=== PATIENT | male | born 1950 | race Caucasian/White ===

== ENCOUNTER → 2018-06-19 10:26 | Outpatient (CLI) | payer MEDICARE, BC, SELFPAY ==
--- NOTE | 2018-06-19 | DI.MRI.S_ITS ---
PROCEDURE: MR LUMBAR SPINE WO CON INDICATIONS: LUMBAR SPINE PAIN TECHNIQUE: Noncontrast sagittal T1 spin echo and T2 fast echo, sagittal STIR, axial T1 and T2 fast spin echo through the lumbar spine. In cases with scoliosis, additional coronal T2 fast spin echo may be performed. COMPARISON: [facility], MR, L-SPINE WITHOUT CONTRAST, 01/21/2017, 8:29. [facility], CR, XR LUMBAR SPINE WITH OBLIQUES, 06/14/2018, 16:01. FINDINGS: Image quality: Excellent. Alignment and Curvature: 5 lumbar type vertebral bodies are present by plain film. Transitional element at L5. There is mild diffuse leftward curvature of the lumbar spine. There is mild, grade 1 retrolisthesis of T12 on L1, L1 on L2, L2 on L3, and L3 on L4. Mild grade 1 anterolisthesis of L4 on L5. Bone Marrow: Marrow is of normal overall signal. No acute vertebral body compression fractures. There is moderate reactive signal within the endplates adjacent to the the T12-L1, L1-L2, and L2-L3 intervertebral discs. Mild reactive signal within the endplates adjacent to the L3-L4 and L4-L5 intervertebral discs. Spinal Cord: Conus medullaris terminates at the L1-L2 disc space level. Visualized cord demonstrates normal signal and size. Paraspinous Soft Tissues: No paravertebral masses. T12-L1: Severe disc height loss and desiccation. Mild diffuse disc bulge. Mild facet hypertrophy. Moderate lipomatosis. Mild canal stenosis is unchanged. Increased, moderate right and no change in mild left foraminal stenosis. L1-L2: Severe disc height loss and desiccation. Mild diffuse disc bulge/osteophyte with superimposed broad-based right far lateral protrusion/osteophyte. Mild epidural lipomatosis. Mild canal stenosis. Mild right greater than left foraminal stenosis. No change. L2-L3: Moderate disc height loss and desiccation. Moderate diffuse disc bulge/osteophyte. Moderate epidural lipomatosis. Mild facet and ligamentum flavum hypertrophy. Severe canal stenosis. Moderate subarticular foraminal stenosis bilaterally. No change. L3-L4: Moderate disc height loss and desiccation. Moderate diffuse disc bulge with superimposed left far lateral broad-based protrusion/osteophyte. Mild facet and ligamentum flavum hypertrophy. Mild epidural lipomatosis. Mild canal stenosis. Severe subarticular left and mild right foraminal stenosis. Intraforaminal L3 nerve root flattening. No change. L4-L5: Moderate disc height loss and desiccation. Moderate facet hypertrophy bilaterally. Mild canal stenosis. Moderate to severe bilateral foraminal stenosis with intraforaminal L4 nerve root flattening. No change. L5-S1: Bilateral facet hypertrophy. No significant canal, nor foraminal stenosis. No change. IMPRESSION: 1.Multilevel degenerative disc and facet disease, as well as ligamentum flavum hypertrophy and epidural lipomatosis. 2. Transitional anatomy at the lumbosacral junction as described above. 3. Multilevel canal stenoses, worst at L2-L3, where there is severe canal stenosis, as before. 4. Multilevel foraminal stenoses, worst at L3-L4 on the left, and at L4-L5 bilaterally where there is associated intraforaminal nerve root flattening. Recommend correlation with clinical symptoms to ascertain relevance of these findings. Dictated by: Hossein Jones M.D. on 06/21/2018 at 9:39 Approved by: Hossein Jones M.D. on 06/21/2018 at 9:47
== END ==
PROVIDERS: PCP Physician Assistant; Visit Provider Physical Medicine & Rehabilitation Pain Medicine
DX: M54.5 Low back pain (principal); M51.36 Other intervertebral disc degeneration, lumbar region; M48.061 Spinal stenosis, lumbar region without neurogenic claudication; E88.2 Lipomatosis, not elsewhere classified
CPT/HCPCS: 72148

== ENCOUNTER → 2021-12-31 11:47 | Outpatient (CLI) | payer MEDICARE, BC, SELFPAY ==
--- NOTE | 2021-12-31 | DI.MRI.S_ITS ---
PROCEDURE: MR LUMBAR SPINE WO CON INDICATIONS: Intervertebral disc disorders with radiculopathy, lumbar reg TECHNIQUE: Noncontrast sagittal T1 spin echo and T2 fast echo, sagittal STIR, and T2 fast spin echo through the lumbar spine. In cases with scoliosis, additional coronal T2 fast spin echo may be performed. COMPARISON: [facility], MR, MR LUMBAR SPINE WO CON, 06/19/2018, 11:17. FINDINGS: Image quality: Excellent. Alignment and Curvature: There is leftward scoliotic curvature with apex at L2. 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 In keeping with prior nomenclature, vertebral bodies are labeled 1 through 5. Prior to any surgical intervention, full x-ray spine series is recommended for further evaluation and numbering. There is an approximate 7 mm anterolisthesis of L4 on L5. There is 2 mm retrolisthesis of L1 on L2, L2 on L3, L3 on L4. Bone Marrow: Marrow is of normal overall signal. No acute vertebral body compression fractures. Spinal Cord: Conus medullaris terminates at the L1 level. Visualized cord demonstrates normal signal and size. Paraspinous Soft Tissues: No paravertebral masses. Increased T2 signal is noted within the right kidney most suggestive of simple cyst. Discs: Moderate to severe desiccation is present throughout the lumbar spine. L1-L2: Mild disc bulge with mild spinal stenosis. There is a right far lateral protrusion/osteophyte. Epidural lipomatosis is present. Mild bilateral foraminal narrowing, right greater than left is present, overall stable. Facet and ligamentum flavum hypertrophy are present. L2-L3: Disc bulge/osteophyte complex is present. There is moderate to severe spinal stenosis, questionably slightly less prominent when compared to prior exam. Epidural lipomatosis is present. Facet and ligamentum flavum hypertrophy are present. There is moderate to severe bilateral foraminal narrowing appearing slightly progressive compared to prior exam. L3-L4: Mild disc bulge with left lateral disc protrusion/osteophyte complex. Moderate to severe spinal stenosis, progressive compared to prior exam. Epidural lipomatosis is present. There is severe left and moderate right foraminal narrowing slightly progressive with flattening of the exiting L3 left nerve root. L4-L5: Mild disc bulge with mild spinal stenosis. There is moderate to severe bilateral foraminal narrowing without appreciable interval change. Facet and ligamentum flavum hypertrophy are present. L5-S1: Minimal disc bulge without spinal stenosis. No foraminal narrowing. No interval change. IMPRESSION: Multilevel degenerative changes with areas of mild interval progression as noted above. Multilevel spinal stenosis is present remaining most severe at L2-3 and L3-4 secondary to disc osteophyte complexes as well as facet/ligamentum flavum arthropathy and epidural lipomatosis. Multilevel foraminal narrowing is present remaining most severe at L3-4 secondary to facet arthropathy. Dictated by: Brooke Garcia M.D. on 12/31/2021 at 16:55 Approved by: Brooke Garcia M.D. on 12/31/2021 at 17:02
== END ==
PROVIDERS: PCP Physician Assistant Medical; Referring Provider Physical Medicine & Rehabilitation Pain Medicine; Visit Provider Physical Medicine & Rehabilitation Pain Medicine
DX: M51.16 Intervertebral disc disorders with radiculopathy, lumbar region (principal); M47.26 Other spondylosis with radiculopathy, lumbar region; M48.061 Spinal stenosis, lumbar region without neurogenic claudication
CPT/HCPCS: 72148